=== PATIENT | female | born 2000 | race Caucasian/White ===

== ENCOUNTER 2023-02-03 10:41 | Outpatient (OUT) | payer OTHER, SELFPAY ==
[2023-02-03 11:13] LABS: Basophils Percent Auto 0.2 % (0.2-2.0); Eosinophils Absolute Auto 0.1 10^3/uL (0.0-0.7); Hematocrit 39.7 % (36.0-48.0); Hemoglobin 12.8 g/dL (12.0-16.0); Immature Granulocytes Abs Auto 0.02 10^3/uL (0.00-0.03); Immature Granulocytes Pct Auto 0.4 % (0.0-0.5); Lymphocytes Absolute Auto 1.7 10^3/uL (1.2-3.8); Lymphocytes Percent Auto 34.7 % (20.5-60.0); Mean Corpuscular HGB Conc 32.2 g/dL (29.9-35.2); Mean Corpuscular Hemoglobin 28.6 pg (26.7-34.0); Mean Corpuscular Volume 88.6 fL (81.0-99.0); Mean Platelet Volume 9.8 fL (9.5-13.5); Monocytes Absolute Auto 0.4 10^3/uL (0.3-0.8); Monocytes Percent Auto 7.1 % (1.7-12.0); Neutrophils Absolute Auto 2.8 10^3/uL (1.4-6.5); Neutrophils Percent Auto 56.6 % (43.0-75.0); Nucleated Red Blood Cells 0; Platelet Count 256 10^3/uL (150-450); Red Blood Count 4.48 10^6/uL (4.20-5.40); Red Cell Distribution Width 12.1 % (11.0-15.0)
[2023-02-03 12:27] LABS: Alanine Aminotransferase 18 U/L (14-59); Albumin Level 3.8 g/dL (3.4-5.0); Alkaline Phosphatase 70 U/L (46-116); Anion Gap 10.8; Aspartate Amino Transferase 16 U/L (15-37); BUN Creatinine Ratio 14.1; Bilirubin Total 0.3 mg/dL (0.2-1.0); Calcium 8.9 mg/dL (8.5-10.1); Carbon Dioxide 28.6 mmol/L (21.0-32.0); Chloride 102 mmol/L (98-107); Estimated GFR (African America >60 (>=60); Estimated GFR (Non-African Ame >60 (>=60); Globulin 3.9 g/dL; Glucose 93 mg/dL (74-106); Potassium 4.4 mmol/L (3.5-5.1); Sodium 137 mmol/L (136-145); Thyroid Stimulating Hormone 0.831 uIU/mL (0.358-3.740); Total Protein 7.7 g/dL (6.4-8.2)
[2023-02-04 08:12] LABS: Prolactin 11.7 ng/mL (4.8-23.3)
[2023-02-04 09:51] LABS: Estradiol 37.1 pg/mL (.); Progesterone 0.1 ng/mL (.)
[2023-02-04 15:11] LABS: Thyroglobulin Antibody <1.0 IU/mL (0.0-0.9); Thyroid Peroxidase (TPO) Ab 10 IU/mL (0-34)
== END 2023-02-03 10:42 ==
LOC: LAB 10:48
PROVIDERS: PCP Family Medicine; Visit Provider Family Medicine
DX: R63.5 Abnormal weight gain (principal)
CPT/HCPCS: 36415; 80053; 82670; 84144; 84146; 84436; 84443; 84481; 85025; 86376; 86800

== ENCOUNTER 2024-03-21 11:41 | Outpatient (OUT) | payer OTHER, SELFPAY ==
--- NOTE | 2024-03-21 11:51 | XR_ITS ---
The [address] [address] Patient Name: QUIANA LOWE MRN: [id number] date: 2000 Sex: F Assigned Patient Location: [facility] Current Patient Location: Accession/Order Number: [id number] Exam Date: 03/21/2024 11:58 Report Date: 03/22/2024 05:15 At the request of: GEOVANY FOFANA Procedure: XR tibia fibula LT 2V PROCEDURE: XR tibia fibula LT 2V HISTORY: Leg Pain M79.606 COMPARISON: None. FINDINGS: BONES:No fracture, acute abnormality, or significant arthropathy. SOFT TISSUES:No visible soft tissue swelling. EFFUSION:None visible. OTHER: Negative. XR/XR tibia fibula LT 2V IMPRESSION: 1. No abnormal or suspicious findings. Electronically authenticated by: EDWIGE NICHOLAS Date: 03/22/2024 05:15
== END 2024-03-21 11:42 | disposition home or self-care (01) ==
LOC: RAD 11:43
PROVIDERS: PCP Family Medicine; Visit Provider Family Medicine
DX: M79.606 Pain in leg, unspecified (principal)
CPT/HCPCS: 73590